=== PATIENT | female | born 1990 | race Hispanic/Latino ===

== ENCOUNTER 2018-06-07 06:31 | Inpatient (IN) | payer OTHER ==
[2018-06-07 07:19] VITALS: BMI 27.5
[2018-06-07] MEDS ORDERED: Lactated Ringer's 1,000 ML IV ONE (07:23)
[2018-06-07] MEDS ORDERED: Oxytocin 30 UNIT 30 UNITS/500 ML BAG IV ONE (07:23)
[2018-06-07] MEDS ORDERED: OXYTOCIN/0.9 % NS 20 UNIT/1,000 ML BAG IV SCH (07:30)
--- NOTE | 2018-06-07 07:35 | OBADHP ---
Datetime: 06/07/2018 07:29 IP Adm Impression Other: prev C/S Thrombocytopenia Admit Comment, IP Provider: admit and stat CBC with plat count and prepare for rC/S Extremities - PN: Normal Abdomen - PN: Normal Back - PN: Normal Breast - PN: Not Done Lungs - PN: Normal Heart - PN: Normal Thyroid - PN: Normal Neurologic - PN: Not Done HEENT - PN: Normal General - PN: Normal FHR - Baseline A Provider: 140 Membranes, Provider: Intact Comments, ACOG Physical Exam: Abd gravid NT fundus at term Old scar extremity no calf tenderness. Gestation - Est Wks by US: 39 wks IP Hx Assessment: The History has been Reviewed and is Current IP Chief Complaint: Scheduled Section; Other NICHD Decel Fetus A IP Provider: None Dilatation, Provider: closed Genitourinary Exam: Normal DTRs - PN: Normal IP Adm Impression: Term, intrauterine IP Admit Plan: Admit to unit; Initiate Section protocol
[2018-06-07 07:57] LABS: BASO % 0.3 % (0.0-2.0); EOS % 0.4 % (0.0-4.0); LYMPH # 1.3 K/uL (1.0-4.3); LYMPH % 10.8 % (20.0-40.0); MEAN CELL VOLUME 94.5 fl (81.0-99.0); MEAN CORPUSCULAR HEMOGLOBIN 31.9 pg (27.0-31.0); MEAN CORPUSCULAR HGB CONC 33.7 g/dL (33.0-37.0); MEAN PLATELET VOLUME 9.2 fl (7.2-11.7); MONO # 0.8 K/uL (0.0-0.8); MONO % 6.7 % (0.0-10.0); NEUT # 9.7 K/uL (1.8-7.0); NEUT % 81.8 % (50.0-75.0); NRBC % 0.2 % (0.0-0.0); RBC 3.46 Mil/uL (3.80-5.20); RED CELL DISTRIBUTION WIDTH 13.9 % (11.5-14.5); WHITE BLOOD COUNT 11.8 K/uL (4.8-10.8)
--- NOTE | 2018-06-07 08:55 | OBPN ---
Datetime: 06/07/2018 07:29 IP Progress Plan Other: licensed club manager consult IP Progress Impression Other: thrombocytopenia IP Progress Plan: Anesthesia consult Membranes, Provider: Intact Contraction Comments Provider: none FHR - Baseline A Provider: 140 Gestation - Est Wks by US: 39 wks IP Progress Note Comment: Anesthesiologist consult done and she suggested a licensed club manager consult. Niru Jasso saw pt and evaluated her and reviewed blood results and hx and after discussing with anesth esia licensed club manager and me we decided that best course of action now is to give IV steroid therapy and repeat CBC in 48 hrs and then proceed with elective RC/S if plat count increases. In case of emergenc y delivery a plat transfusion may be necessary. Discussed with pt and explained situation and unders tand and agreed. Dilatation, Provider: closed NICHD Decel Fetus A IP Provider: None
[2018-06-07] MEDS: Lactated Ringer's 1,000 ML IV ONE ×2 (09:00→22:09)
[2018-06-07] MEDS ORDERED: methylPREDNISolone 30 MG in Sodium Chloride 0.9% 50 ML IVPB SCH ×3 (09:00→22:00)
[2018-06-07] MEDS ORDERED: Clindamycin 600mg/50ml D5W 600 MG/50 ML VIAL IVPB SCH ×2 (09:00→12:00)
[2018-06-07] MEDS ORDERED: MethylPREDNISolone 40 mg Vial IVP SCH (09:00)
--- NOTE | 2018-06-07 10:12 | CP.PCM.CON ---
History of Present Illness - History of Present Illness History of Present Illness: This is a 28 yrs old female, admitted because of uterine contractions. She is 38weeks and was supposed to have a c section today but her platelets were low at 88K I had seen her about 6 months ago with a low platelet count I had started her on a low dose of steroids, and her platelets went up to 120k. She changed her insurance so I could not take care of her. She saw another Watch Leader, and because the Platelets were more than 100 the prednisone was discontinued. Pt was nervous doing that and kept taking it on her own, so her count stayed up. She was again seen by the cardiology specialist a couple of weeks ago and she again stopped the prednisone. Now her count is 88k and she has mild contractions off and on. Past Patient History - Past Social History Smoking Status: Never Smoked Meds Allergies/Adverse Reactions: Allergies Allergy/AdvReac Type Severity Reaction Status Date / Time Penicillins Allergy RASH Verified 06/07/18 07:22 - Medications Medications: Current Medications Clindamycin Phosphate (Cleocin) 600 mg in 50 mls @ 50 mls/hr IVPB Q8 SULEMAN; Fabi col Oxytocin (Pitocin) 30 units in 500 mls @ 1 mls/hr IV .Q24H ONE; Protocol Stop: 06/08/18 07:22 OXYTOCIN/0.9 % NS (Oxytocin 20 Unit/1000 Ml-Ns) 20 unit in 1,000 mls @ 125 mls/hr IV .Q8H SULEMAN; Protocol Lactated Ringer's (Lactated Ringer's) 1,000 mls @ 125 mls/hr IV .Q8H ONE Methylprednisolone 30 mg/ (Sodium Chloride) 50 mls @ 100 mls/hr IVPB Q12 SULEMAN Physical Exam - Additional Findings Additional findings: P/E; Alert.well oriented, in no acute distress neck; supple, no adenopathy Chest; Clear, no rales or rhonchi Heart; RSR, no murmur Abd; 38 weeks Results - Labs Result Diagrams: 06/07/18 07:30 Labs: Laboratory Results - last 24 hr 06/07/18 06/07/18 06/07/18 07:23 07:30 07:30 WBC 11.8 H RBC 3.46 L Hgb 11.0 L Hct 32.7 L MCV 94.5 MCH 31.9 H MCHC 33.7 RDW 13.9 Plt Count 88 L Manual Plt Count 116 L MPV 9.2 Neut % (Auto) 81.8 H Lymph % (Auto) 10.8 L [place] % (Auto) 6.7 Eos % (Auto) 0.4 Baso % (Auto) 0.3 Neut # (Auto) 9.7 H Lymph # (Auto) 1.3 [place] # (Auto) 0.8 Eos # (Auto) 0.0 Baso # (Auto) 0.0 HIV-1 Ab Rapid Screen Blood Type A POSITIVE Antibody Screen Negative BBK History Checked Patient has bt 06/07/18 07:30 WBC RBC Hgb Hct MCV MCH MCHC RDW Plt Count Manual Plt Count MPV Neut % (Auto) Lymph % (Auto) [place] % (Auto) Eos % (Auto) Baso % (Auto) Neut # (Auto) Lymph # (Auto) [place] # (Auto) Eos # (Auto) Baso # (Auto) HIV-1 Ab Rapid Screen Non reactive Blood Type Antibody Screen BBK History Checked Assessment & Plan - Assessment and Plan (Free Text) Assessment: Impression; Immune thrombocytosis of Pt is 38 weeks Plan: Plan; Since the patient is not inactive labor, and the C/s can be postponed for a couple of days, I will start her on steroids. After a loading dose will give her steroids IV for te next 4 days. If the platelets fail to respond by hen, mino l have to transfuse platelets. - Date & Time Date: 06/07/18 Time: 10:22
--- NOTE | 2018-06-07 21:48 | OBPN ---
Datetime: 06/07/2018 21:43 IP Progress Impression: Reassuring heart rate IP Progress Plan: Continue present management Membranes, Provider: Intact Contraction Comments Provider: none FHR - Baseline A Provider: 140-150 Gestation - Est Wks by US: 39.0 IP Progress Note Comment: On IV steroids and continue present management NICHD Variability Prov Fetus A: Moderate 6-25bpm NICHD Decel Fetus A IP Provider: None Datetime: 06/07/2018 07:29 IP Progress Plan Other: panel gluer consult
[2018-06-08 10:08] LABS: BASO % 0.1 % (0.0-2.0); EOS % 0.2 % (0.0-4.0); HEMOGLOBIN 10.5 g/dL (12.0-16.0); LYMPH # 1.4 K/uL (1.0-4.3); LYMPH % 12.2 % (20.0-40.0); MEAN CELL VOLUME 94.5 fl (81.0-99.0); MEAN CORPUSCULAR HEMOGLOBIN 31.7 pg (27.0-31.0); MEAN CORPUSCULAR HGB CONC 33.5 g/dL (33.0-37.0); MEAN PLATELET VOLUME 9.6 fl (7.2-11.7); MONO # 0.7 K/uL (0.0-0.8); MONO % 6.1 % (0.0-10.0); NEUT # 9.1 K/uL (1.8-7.0); NEUT % 81.4 % (50.0-75.0); NRBC % 0.1 % (0.0-0.0); RBC 3.32 Mil/uL (3.80-5.20); RED CELL DISTRIBUTION WIDTH 13.9 % (11.5-14.5); WHITE BLOOD COUNT 11.2 K/uL (4.8-10.8)
--- NOTE | 2018-06-08 10:12 | CP.PCM.PN ---
Subjective - Date & Time of Evaluation Date of Evaluation: 06/08/18 Time of Evaluation: 10:09 - Subjective Subjective: Pt's manual platlet count was 113K yesterday. I gave her a loading dose yesterday, and will see what the count is today.. If it is over 110k she can have the C section today. Objective - Medications Medications: Current Medications Lactated Ringer's (Lactated Ringer's) 1,000 mls @ 125 mls/hr IV .Q8H ONE Last Admin: 06/07/18 22:09 Dose: 125 mls/hr Methylprednisolone 20 mg/ (Sodium Chloride) 50 mls @ 100 mls/hr IVPB DAILY SULEMAN - Labs Labs: 06/07/18 07:30
[2018-06-08] MEDS: methylPREDNISolone 20 MG in Sodium Chloride 0.9% 50 ML IVPB SCH (11:04)
--- NOTE | 2018-06-08 14:13 | OBPN ---
Datetime: 06/08/2018 14:08 IP Procedures Other: Continue IV steroids IP Progress Plan Other: repeat CBC in am IP Progress Impression Other: thrombocytopenia IP Progress Impression: Reassuring heart rate IP Progress Plan: Continue present management Membranes, Provider: Intact Contraction Comments Provider: sporadic FHR - Baseline A Provider: 140-150 Gestation - Est Wks by US: 39.0 IP Progress Note Comment: CBC this am still showing thrombocytopenia and discussed with treating engineer will continue IV steroids and repeat CBC in am with mannual count Continue close monitoring for sig n of bleeding or labor Discussed with pt who understands and agreed. NICHD Accel Fetus A IP Provider: 10X10 NICHD Variability Prov Fetus A: Moderate 6-25bpm NICHD Decel Fetus A IP Provider: None
--- NOTE | 2018-06-09 08:11 | OBPN ---
Datetime: 06/09/2018 08:05 IP Procedures Other: CBC this am with mannual count IP Progress Impression Other: thrombocytopenia IP Progress Impression: Reassuring heart rate IP Progress Plan: Continue present management Membranes, Provider: Intact FHR - Baseline A Provider: 140's Gestation - Est Wks by US: 39 wks IP Progress Note Comment: CBC this am with mannual count Continue IV meds and close monitoring for s igns of bleeding and labor. NICHD Accel Fetus A IP Provider: 10X10 NICHD Variability Prov Fetus A: Moderate 6-25bpm NICHD Decel Fetus A IP Provider: None
[2018-06-09 08:52] LABS: BASO % 0.2 % (0.0-2.0); EOS # 0.1 K/uL (0.0-0.7); EOS % 0.7 % (0.0-4.0); HEMOGLOBIN 11.3 g/dL (12.0-16.0); LYMPH # 1.7 K/uL (1.0-4.3); LYMPH % 15.2 % (20.0-40.0); MEAN CELL VOLUME 95.1 fl (81.0-99.0); MEAN CORPUSCULAR HEMOGLOBIN 31.5 pg (27.0-31.0); MEAN CORPUSCULAR HGB CONC 33.1 g/dL (33.0-37.0); MEAN PLATELET VOLUME 9.8 fl (7.2-11.7); MONO # 0.8 K/uL (0.0-0.8); MONO % 7.4 % (0.0-10.0); NEUT # 8.5 K/uL (1.8-7.0); NEUT % 76.5 % (50.0-75.0); NRBC % 0.2 % (0.0-0.0); RBC 3.57 Mil/uL (3.80-5.20); RED CELL DISTRIBUTION WIDTH 14.4 % (11.5-14.5); WHITE BLOOD COUNT 11.1 K/uL (4.8-10.8)
[2018-06-09] MEDS: methylPREDNISolone 20 MG in Sodium Chloride 0.9% 50 ML IVPB SCH (11:04)
[2018-06-09] MEDS: Lactated Ringer's 1,000 ML IV ONE (11:05)
[2018-06-10] MEDS ORDERED: Oxytocin 30 UNIT 30 UNITS/500 ML BAG IV ONE ×2 (07:12→10:04)
[2018-06-10] MEDS ORDERED: OXYTOCIN/0.9 % NS 20 UNIT/1,000 ML BAG IV SCH ×2 (07:15→10:10)
[2018-06-10] MEDS ORDERED: Lactated Ringer's 1,000 ML IV SCH (07:30)
--- NOTE | 2018-06-10 09:50 | CP.PCM.PN ---
Subjective - Date & Time of Evaluation Date of Evaluation: 06/10/18 Time of Evaluation: 09:48 - Subjective Subjective: Pt's manual platelet count has consistently been above, 100k, so she is now having a c section. Dr Mccormick will call ne if there are any problems. Objective - Medications Medications: Current Medications Lactated Ringer's (Lactated Ringer's) 1,000 mls @ 125 mls/hr IV .Q8H ONE Last Admin: 06/09/18 11:05 Dose: 125 mls/hr Methylprednisolone 20 mg/ (Sodium Chloride) 50 mls @ 100 mls/hr IVPB DAILY SULEMAN Last Admin: 06/09/18 11:04 Dose: 100 mls/hr OXYTOCIN/0.9 % NS (Oxytocin 20 Unit/1000 Ml-Ns) 20 unit in 1,000 mls @ 125 mls/hr IV .Q8H SULEMAN; Protocol Lactated Ringer's (Lactated Ringer's) 1,000 mls @ 125 mls/hr IV .Q8H SULEMAN Last Admin: 06/10/18 07:30 Dose: 125 mls/hr - Labs Labs: 06/09/18 08:23
[2018-06-10] MEDS ORDERED: Oxycodone/Acetaminophen 5/325 mg Tab PO PRN (10:02)
--- NOTE | 2018-06-10 10:27 | OBDS ---
DELIVERY PERSONNEL Delivery Doctor: Patricia Mccormick MD Rn Transplant: Suzanne Mack RN Anesthesiologist: Dr. Portillo MATERNAL INFORMATION Medications in Delivery: pitocin 30units Estimated Blood Loss (ml): 800 Placenta Cultured: No Other Maternal Complications: severe thrombocytopenia RN Comments: 0855 r 150bpm Provider Comments: see dictated surgeons note LABOR SUMMARY EDC: 06/14/2018 00:00 No. Babies in Womb: 1 Attempted: No Labor Anesthesia: None LABOR INFORMATION Reason for Induction: Not Applicable Oxytocin: N/A Group B Beta Strep: Negative (Annotations: 05/11/18) Antibiotics # of Doses: n/a Antibiotics Time of Last Dose: n/a Steroids Given: None Reason Steroids Not Administered: Not Applicable MEMBRANES Membranes Rupture Method: Artificial Rupture of Membranes: 06/10/2018 09:16 Length of Rupture (hrs): 0.02 Amniotic Fluid Color: Clear Amniotic Fluid Amount: Small Amniotic Fluid Odor: Normal STAGES OF LABOR Stage 3 hrs: 0 Stage 3 min: 1 VAGINAL DELIVERY Episiotomy: None Laceration Extension: N/A Laceration Type: None Laceration Repair: Not Applicable Laceration Repair Note: n/a Sponge Count Correct: Yes Sharps Count Correct: Yes Count Comment: count correct x3 CSECTION DELIVERY Primary Indication: Repeat Elective Other Primary Indication: thrombocytopenia Secondary Indication: Repeat Elective CSection Urgency: Elective CSection Incidence: Repeat Elective: N/A CSection Incision: Lower Uterine Transverse Uterine Closure: Double-layer closure BABY A INFORMATION Delivery Date/Time: 06/10/2018 09:17 Method of Delivery: Born in Route : No : N/A Forceps: N/A Vacuum Extraction: N/A Shoulder Dystocia : No SHOULDER DYSTOCIA BABY A Delivery Date/Time: 06/10/2018 09:17 PRESENTATION/POSITION BABY A Presentation: Cephalic Cephalic Presentation: Vertex Breech Presentation: N/A PLACENTA INFORMATION BABY A Placenta Delivery Time : 06/10/2018 09:18 Placenta Method of Delivery: Manual Removal Placenta Status: Delivered SCORES BABY A Heart Rate 1 min: >100 bpm Resp Effort 1 min: Good Cry Reflex Irritability 1 min: Cough or Sneeze or Pulls Away Muscle Tone 1 min: Active Motion Color 1 min: Body [place], Extremities Blue Resuscitation Effort 1 min: Tactile Stimulation SCORE 1 MIN: 9 Heart Rate 5 min: >100 bpm Resp Effort 5 min: Good Cry Reflex Irritability 5 min: Cough or Sneeze or Pulls Away Muscle Tone 5 min: Active Motion Color 5 min: Body [place], Extremities Blue Resuscitation Effort 5 min: N/A SCORE 5 MIN: 9 INFORMATION BABY A Gestational Age at Delivery: 39.3 Gestational Status: Term Infant Outcome : Liveborn Infant Condition : Stable Infant Sex: Male IDENTIFICATION/MEDS BABY A ID Band Number: [id number] ID Band Location: Left Leg; Left Arm Vitamin K Given : Deferred by Parents Erythromycin Given: Not Given WEIGHT/LENGTH BABY A Infant Birthweight (gms): 4015 Weight (lb): 8 Weight (oz): 14 CORD INFORMATION BABY A No. Cord Vessels: 3 Nuchal Cord : N/A Cord Blood Taken: Yes Infant Suction: Mouth; Nose ASSESSMENT BABY A Complications: None Physical Findings at Delivery: Within Normal Limits Respirations: Appears Normal Environmental Coordinator/ALS Called : No Care By: Dr. Mart Transferred To: Remains with Mother
[2018-06-10] MEDS ORDERED: Clindamycin 600mg/50ml D5W 600 MG/50 ML VIAL IVPB SCH (17:00)
[2018-06-10] MEDS: Clindamycin 600mg/50ml D5W 600 MG/50 ML VIAL IVPB SCH (17:50)
[2018-06-10] MEDS: Oxycodone/Acetaminophen 5/325 mg Tab PO PRN (19:56)
[2018-06-10] MEDS: OXYTOCIN/0.9 % NS 20 UNIT/1,000 ML BAG IV SCH (20:10)
[2018-06-11] MEDS: Clindamycin 600mg/50ml D5W 600 MG/50 ML VIAL IVPB SCH ×2 (01:10→08:27)
[2018-06-11] MEDS: OXYTOCIN/0.9 % NS 20 UNIT/1,000 ML BAG IV SCH (04:00)
[2018-06-11] MEDS: Lactated Ringer's 1,000 ML IV ONE (04:47)
[2018-06-11] MEDS: Oxycodone/Acetaminophen 5/325 mg Tab PO PRN ×3 (05:36→19:10)
[2018-06-11 10:55] LABS: HEMOGLOBIN 11.6 g/dL (12.0-16.0); MEAN CELL VOLUME 94.8 fl (81.0-99.0); MEAN CORPUSCULAR HEMOGLOBIN 31.1 pg (27.0-31.0); MEAN CORPUSCULAR HGB CONC 32.8 g/dL (33.0-37.0); RBC 3.72 Mil/uL (3.80-5.20); RED CELL DISTRIBUTION WIDTH 14.1 % (11.5-14.5); WHITE BLOOD COUNT 15.8 K/uL (4.8-10.8)
--- NOTE | 2018-06-11 14:31 | CP.PCM.PN ---
Subjective - Date & Time of Evaluation Date of Evaluation: 06/11/18 Time of Evaluation: 14:28 - Subjective Subjective: Pt had her c section on 06/09/18 and there was no exessive bleeding during the procedure. Her manual platelet counts continue to be in the normal range. Will discontinue the the steroids after the last dose today Objective - Medications Medications: Current Medications Docusate Sodium (Colace) 100 mg PO BID SULEMAN Last Admin: 06/11/18 08:26 Dose: 100 mg Lactated Ringer's (Lactated Ringer's) 1,000 mls @ 125 mls/hr IV .Q8H ONE Last Admin: 06/11/18 04:47 Dose: 125 mls/hr Ibuprofen (Motrin Tab) 600 mg PO Q6H PRN PRN Reason: Pain, Mild (1-3) Oxycodone/Acetaminophen (Percocet 5/325 Mg Tab) 1 tab PO Q4 PRN PRN Reason: Pain, moderate (4-7) Stop: 06/13/18 10:03 Last Admin: 06/11/18 11:24 Dose: 1 tab - Labs Labs: 06/11/18 08:00
--- NOTE | 2018-06-11 14:57 | OBPPN ---
Datetime: 06/11/2018 14:49 PP Pain Prov: Within normal limits PP Nausea Prov: Denies PP Flatus Prov: Yes PP BM Prov: No PP Breasts Prov: Normal PP Heart Prov: Normal PP Lungs Prov: Normal PP Abdomen/Uterus Prov: Normal PP Lochia Prov: Normal PP Vulva/Perineum Prov: Normal PP CVA Tenderness Prov: Normal PP Extremities Prov: Normal PP C/S Incision Prov: Normal PP Progress Prov: Normal PP Impression Prov: Normal progression PP Plan Prov: Continue present management PP Progress Note Prov: stable pod1,no complaints today dressing clean plt manual [address] Jasso today IP PP Procedures: None Vital Signs Provider PP: Reviewed; Within Normal Limits
--- NOTE | 2018-06-11 23:29 | OP ---
PROCEDURE DATE: 06/10/2018 PREOPERATIVE DIAGNOSES: 1. at term. 2. Previous section. 3. Thrombocytopenia. POSTOPERATIVE DIAGNOSES: 1. at term. 2. Pelvic adhesions. 3. Previous section. 4. Thrombocytopenia. PROCEDURES PERFORMED: 1. Repeat low-transverse segment section. 2. Lysis of adhesions. SURGEON: Jovan Mccormick MD SPECIAL ASSETS OFFICER: Dr. Moreno, who was there for the entire duration of the case. Padding Machine Operator was needed in positioning the patient, opening up the abdomen, closure of the abdomen, and delivery of the baby. No rn surgical present at this time. ANESTHESIA USED: Spinal per Dr. Portillo. ESTIMATED BLOOD LOSS: 800 mL. DRAINS USED: None. REPLACEMENTS USED: None. FINDINGS: 1. Delivered living baby boy, baby appears term. Baby cried spontaneously. Baby appears large for gestational age. Pediatrist in attendance. score of 9 and 9. 2. Amniotic fluid clear. 3. Placenta complete and intact. 4. Both tubes and ovaries appear grossly within normal limits to inspection bilaterally. 5. Adhesions of the omentum to the anterior abdominal wall lysed in order to prevent future entrapment of the bowel. DESCRIPTION OF PROCEDURE: The patient was taken to the operating room and placed on the operating table in a supine position. At this time, spinal anesthesia was then induced and the patient was then replaced in a supine position. A Persaud catheter was then inserted into the bladder and was draining clear fluid. At this time, we then proceeded to apply Venodyne boots to both legs. The abdomen was then draped and prepped in usual sterile manner. Anesthesia tested and found to be well secured, and a Pfannenstiel incision was then made using sharp dissection 2 fingerbreadths above the symphysis pubis along the edges of the previous incision. The incision was then extended down to subcutaneous tissue using sharp dissection. At this time, hemostasis was obtained by means of electrocoagulation. Fascia was then entered at the midline, and the incision in the fascia was then extended laterally in each direction using sharp dissection. Rectus muscle was then identified, was then slit in the midline exposing the peritoneum. Peritoneal layer was then picked up using 2 Melania clamps, retracted superiorly, and then entered using sharp dissection. Incision in the peritoneum was then extended superiorly and inferiorly under direct visualization. At this time, we then proceeded to identify the bladder which was then retracted inferiorly using a Stanley retractor. The low transverse segment of the uterus was then identified and the visceral peritoneum covering this area was then entered using sharp dissection. Using blunt dissection, a bladder flap was then created and retracted inferiorly using the same Edyta retractor. An incision was then made using the sharp dissection in the low transverse segment of the uterus and upon entering the uterine cavity, clear fluid noted to be present. The incision was then extended laterally on each direction using bandage scissors. Using amnioscopy procedure, a living baby boy was then delivered. The baby appeared term but appeared large for gestational age. The baby cried spontaneously and was aspirated using a bulb suction. The umbilicus was then doubly clamped, cut and the baby handed to the pediatric personnel who was standing by. Samples of cord blood were then obtained and the placenta was then delivered complete and intact. Uterus was then exteriorized to provide better visualization and the uterine cavity was then massaged and cleaned using moist lap pads. The uterus contracted well. At this stage, we then proceeded to secure the uterine incision using multiple T-clamps. The uterine incision was then approximated using 0 Vicryl suture in a continuous interlocking manner. A second layer was also applied using 0 Vicryl suture in a continuous manner. Hemostasis again checked and found to be well secured. The bladder flap was then approximated using several interrupted 2-0 Vicryl sutures. Again, hemostasis checked and found to be well secured. Free amniotic fluid and blood were then evacuated from the pelvic cavity. The pelvic cavity was then irrigated using saline solution and both tubes and ovaries appeared grossly within normal limits to inspection bilaterally. The uterus was then allowed to retract back into its original position. All operative areas checked, hemostatically secured, and the peritoneum was then closed using 0 Vicryl suture in a continuous manner. Rectus muscle was also approximated in the midline using 0 Vicryl suture in a continuous manner. At this time, we then proceeded to identify the fascia. Fascia was then approximated using 1 Vicryl suture in a continuous manner. Fascia was then checked and found to be free of defect. Subcutaneous tissue was then irrigated using saline solution, hemostatically secured by means of electrocoagulation and approximated using several interrupted 2-0 plain sutures. The skin was then approximated using a 3-0 Prolene in a subcuticular fashion. Steri-Strips were then applied. The patient tolerated the procedure well. There were no complications. Clear fluid noted to be present in the Persaud bag at this time. Sponge, instrument, and needle counts were correct x3. Jovan Mccormick MD
[2018-06-12] MEDS: Oxycodone/Acetaminophen 5/325 mg Tab PO PRN ×4 (00:29→23:12)
--- NOTE | 2018-06-12 11:08 | OBPPN ---
Datetime: 06/12/2018 11:04 PP Pain Prov: Within normal limits PP Pain Prov comment: no SOB, chest or leg pains PP Nausea Prov: Denies PP Flatus Prov: Yes PP BM Prov: No PP Nausea Prov comment: no excessive bleeding PP Breasts Prov: Normal PP Lungs Prov: Normal PP Abdomen/Uterus Prov: Abnormal PP Lochia Prov: Normal PP Vulva/Perineum Prov: Normal PP CVA Tenderness Prov: Normal PP Extremities Prov: Normal PP C/S Incision Prov: Normal PP Progress Prov: Normal PP Comments Phys Exam Prov: breast not engorged NT; Uterus firm below the umb Abd soft ND Incission clean and dry no sign of bleeding or infection PP Impression Prov: Normal progression PP Plan Prov: Continue present management PP Progress Note Prov: Dulcolax suppt this pm and continue po care IP PP Procedures: None Vital Signs Provider PP: Reviewed
[2018-06-13] MEDS: Oxycodone/Acetaminophen 5/325 mg Tab PO PRN (07:34)
--- NOTE | 2018-06-13 07:52 | OBDCSUM ---
Datetime: 06/13/2018 07:50 Discharged to, Provider: Home Follow up at, Provider: Dr Mccormick Disch Instr Activity: Bedrest; May be up to bathroom; May be up for meals; May Shower Disch Instr Diet: Regular Discharge Instructions, Provider: Routine instructions given Discharge Diagnosis, Provider: Term Delivered Discharge Time: 06/13/2018 07:50 Follow up in weeks, Provider: 1 wk Contraception discussed, Prov: Yes Disch Activity Restrictions: No exercising; No lifting; No driving; Minimize walking; Minimize stair -climbing; No sexual activity; Nothing in vagina - [place], tampons, douche Discharge Comment, Provider: follow up with travel physical therapist and my office Rx for percocet given Discharge Diagnosis Prov Other: thrombocytopenia Contraception after Delivery: Undecided
--- NOTE | 2018-06-13 07:52 | OBPPN ---
Datetime: 06/13/2018 07:47 PP Pain Prov: Within normal limits PP Pain Prov comment: No SOB, chest or leg pains PP Nausea Prov: Denies PP Flatus Prov: Yes PP BM Prov: Yes PP Breasts Prov: Normal PP Lungs Prov: Normal PP Abdomen/Uterus Prov: Abnormal PP Lochia Prov: Normal PP Vulva/Perineum Prov: Normal PP CVA Tenderness Prov: Normal PP Extremities Prov: Normal PP C/S Incision Prov: Normal PP Progress Prov: Normal PP Comments Phys Exam Prov: breast NE, bt feeding; Abd soft ND fundus firm below umb, incision clean and dry Prolene in place no sign of infection; ext no calf tenderness PP Impression Prov: Normal progression PP Plan Prov: Discharge PP Progress Note Prov: D/C home with instructions IP PP Procedures: None Vital Signs Provider PP: Reviewed
--- NOTE | 2018-06-13 10:40 | CP.PCM.PN ---
Subjective - Date & Time of Evaluation Date of Evaluation: 06/13/18 Time of Evaluation: 10:37 - Subjective Subjective: Patient has consistently had a platelets counts abov3e 100. Today the machine count is 113K. nShe may be discharged today. Objective - Medications Medications: Current Medications Docusate Sodium (Colace) 100 mg PO BID SULEMAN Last Admin: 06/12/18 17:20 Dose: Not Given Ibuprofen (Motrin Tab) 600 mg PO Q6H PRN PRN Reason: Pain, Mild (1-3) - Labs Labs: 06/11/18 08:00
[2018-06-13 19:16] VITALS: BP 113/76; PULSE 83; RESP 20; TEMP 97.8; O2SAT 100
== END 2018-06-13 14:45 | disposition home or self-care (01) | DRG 370 ==
LOC: H.EROB2 06:31 → H.L&D 07:23 → H.OB/GYN 06-10 12:45
PROVIDERS: ADMIT Specialist; ATTEND Specialist
PROC: 10D00Z1 Extraction of Products of Conception, Low, Open Approach (ICD-10-PCS; principal; 2018-06-10)
DX: O34.211 Maternal care for low transverse scar from previous cesarean delivery (principal); O36.63X0 Maternal care for excessive fetal growth, third trimester, not applicable or unspecified; D69.6 Thrombocytopenia, unspecified; O99.12 Other diseases of the blood and blood-forming organs and certain disorders involving the immune mechanism complicating childbirth; Z3A.39 39 weeks gestation of pregnancy; Z37.0 Single live birth; Z88.0 Allergy status to penicillin